=== PATIENT | female | born 1965 | race African-American/Black ===

== ENCOUNTER 2017-02-10 13:38 | Emergency (ER) | payer OTHER ==
[~2017-02-10] VITALS: Ht 165.1 cm; Wt 91.5 kg
[2017-02-10 13:42] VITALS: Ht 165.1 cm; Wt 91.5 kg
[2017-02-10] MEDS ORDERED: KETOROLAC 30 MG INJ IM STA (14:07)
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
[2017-02-10] MEDS ORDERED: HYDROCODONE/APAP (5/325) TAB PO ONE (14:30)
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
--- NOTE | 2017-02-10 15:22 | RADRPT ---
PROCEDURE: X-ray cervical spine. CLINICAL INDICATION: Neck trauma yesterday with pain. TECHNIQUE: AP, lateral, and odontoid views of the cervical spine are available for review. COMPARISON: None available. FINDINGS: There is no acute fracture or static subluxation. There is mild straightening of the nor mal cervical lordosis, which may be related to positioning. The alignment is otherwise normal. The vertebral body heights and intervertebral disk heights are well maintained. The posterior elements a re unremarkable. There is no prevertebral soft tissue edema. The visualized lung apices are clear. There is multilevel degenerative enthesopathy, which is most pronounced and moderate at C5-6. There is mild multilevel facet arthropathy. IMPRESSION: 1. Negative for acute fracture or static subluxation. If there remains clinical concern for acute f racture or ligamentous injury , further evaluation with CT scan or flexion/extension views may be wa rranted. 2. Multilevel degenerative enthesopathy, most pronounced and moderate at C5-6. Mild multilevel face t arthropathy. 3. Mild straightening of the normal cervical lordosis, which may be positional in nature. RPTAT: HLBP .Ector Goode MD, MD Date Time Electronically viewed and signed by .Ector Goode MD, MD on 02/10/2017 15:22 .P/
[2017-02-10] MEDS ORDERED: IBUP-1542 PO (15:34)
[2017-02-10] MEDS ORDERED: TRAM50TA2 PO (15:34)
== END 2017-02-10 15:47 | disposition home or self-care (01) ==
LOC: FTE 13:38
DX: S19.9XXA Unspecified injury of neck, initial encounter (principal); R07.9 Chest pain, unspecified; Y04.0XXA Assault by unarmed brawl or fight, initial encounter
CPT/HCPCS: 71010; 72040; 96372; 99284; J1885

== ENCOUNTER 2018-01-14 10:41 | Emergency (ER) | END 2018-01-14 13:15 | disposition home or self-care (01) ==

== ENCOUNTER 2018-02-27 12:00 | Emergency (ER) | END 2018-02-27 14:47 | disposition home or self-care (01) ==